=== PATIENT | male | born 1985 | race Hispanic/Latino ===

== ENCOUNTER → 2024-06-22 | Outpatient (CLI) | payer OTHER ==
--- NOTE | 2024-06-22 10:44 | HMCIMG ---
MR SHOULDER RIGHT WO HISTORY: Anterior subluxation and dislocation of the humerus COMPARISON: None TECHNIQUE: MRI of the right shoulder was performed utilizing multiple pulse sequences in axial, coronal and sagittal planes. Patient was not given contrast through intravenous route. FINDINGS: Subchondral cyst formation is seen of the superolateral humeral head. Hypertrophic degenerative changes are seen of the acromioclavicular joint. There is downward sloping of acromion in a medial to lateral direction encroaching upon the rotator cuff tendon and muscles. There is marked tendinosis with at least partial undersurface tear. Complete rotator cuff tendon. Is suspected. MR arthrogram may be helpful. The glenoid labrum is intact. Bicipital tendon is seen within its groove. Small joint effusion is seen. IMPRESSION: 1. There is marked tendinosis with at least partial undersurface tear. Complete rotator cuff tendon. Is suspected. MR arthrogram may be helpful. Small joint effusion.
== END | disposition home or self-care (01) ==
LOC: RAH 08:11
PROVIDERS: ATTEND Student in an Organized Health Care Education/Training Program
DX: S46.011D Strain of muscle(s) and tendon(s) of the rotator cuff of right shoulder, subsequent encounter (principal); S43.001A Unspecified subluxation of right shoulder joint, initial encounter; M19.011 Primary osteoarthritis, right shoulder; M25.411 Effusion, right shoulder; X58.XXXD Exposure to other specified factors, subsequent encounter
CPT/HCPCS: 73221

== ENCOUNTER 2024-08-01 05:53 | Day surgery (SDC) | payer OTHER ==
[2024-07-30 11:00] VITALS: BP 142/98; PULSE 77; RESP 18; TEMP 98.4
[2024-07-30 11:06] LABS: BASOPHILS # (AUTO) 0.04 K/uL (0.00-0.20); BASOPHILS % (AUTO) 0.4 % (0.0-5.0); EOSINOPHILS # (AUTO) 0.46 K/uL (0.00-0.70); EOSINOPHILS % (AUTO) 4.9 % (0.0-8.0); HEMATOCRIT 44.6 % (42-54); IMMATURE GRANULOCYTE ABSOLUTE 0.04 K/uL (0-1); LYMPHOCYTES # (AUTO) 3.2 K/uL (1.0-4.8); LYMPHOCYTES % (AUTO) 34.1 % (21.0-51.0); MEAN CORPUSCULAR HEMOGLOBIN 28.4 pg (27.0-33.0); MEAN CORPUSCULAR HGB CONC 33.9 g/dL (32.0-36.0); MONOCYTES # (AUTO) 0.7 K/uL (0.1-1.0); MONOCYTES % (AUTO) 7.5 % (3.0-13.0); NEUTROPHILS % (AUTO) 52.7 % (40.0-77.0); PLATELET COUNT (AUTO) 206 K/uL (130-400); RED BLOOD CELL COUNT(AUTO) 5.31 MIL/uL (4.50-6.20); RED CELL DISTRIBUTION WIDTH 12.9 % (11.0-15.5); WHITE BLOOD COUNT (AUTO) 9.4 K/uL (4.8-10.8)
[2024-07-30 11:36] LABS: INR 1.03 (0.85-1.15); PROTHROMBIN TIME 10.9 SEC (9.6-11.6)
[2024-07-30 11:37] LABS: CREATININE 0.8 mg/dL (0.5-1.3); POTASSIUM 3.9 mmol/L (3.5-5.1)
[2024-07-30 11:38] LABS: PARTIAL THROMBOPLASTIN TIME 28.2 SEC (26.3-35.5)
[~2024-08-01] VITALS: Ht 172.7 cm; Wt 162.1 kg
[2024-08-01] VITALS (16 sets, daily range): BP systolic 114–138; BP diastolic 41–70; PULSE 70–84; RESP 14–20; TEMP 97.3–98.4
[~2024-08-01 05:53] MED LIST: NAPR-1194 PO; SEMA1PEN3 SQ; TADA5TAB PO
[2024-08-01] MEDS: 0.9%NACL 1000ML 1,000 ML IV ONE (06:36)
[2024-08-01] MEDS: ceFAZolin SODIUM 1 GM VIAL ONE (06:37)
[2024-08-01] MEDS: ceFAZolin SODIUM 2 GM VIAL ONE (06:37)
[2024-08-01] MEDS ORDERED: dexaMETHasone SOD PHOSPHATE 10MG/ML 1ML VIAL ONE (07:35)
[2024-08-01] MEDS ORDERED: LIDOCAINE PF 100MG/5ML (2%) SYRINGE 5ML ONE (07:35)
[2024-08-01] MEDS ORDERED: ondanSETRON 4MG INJ ONE (07:35)
[2024-08-01] MEDS ORDERED: MIDAZOLAM HCL 1 MG/ML 2ML VIAL ONE (07:36)
[2024-08-01] MEDS ORDERED: SUCCINYLCHOLINE CHLORIDE 20 MG/ML 10 ML VIAL ONE (07:36)
[2024-08-01] MEDS ORDERED: proPOFol 10 MG/ML 20ML VIAL IV ONE (07:36)
[2024-08-01] MEDS ORDERED: FENTanyl CITRate PF 50 MCG/1 ML 2ML VIAL ONE (07:37)
[2024-08-01] MEDS ORDERED: rocuRONium bROMide 10MG/1ML 5ML VL ONE ×2 (07:37→11:48)
[2024-08-01] MEDS ORDERED: phenylEPHRINE HCL 10 MG/ML 1ML VIAL IV ONE ×2 (07:39→10:58)
[2024-08-01] MEDS ORDERED: GLYCOPYRROLATE 0.2 MG/ML 5 ML VIAL ONE (07:39)
[2024-08-01] MEDS ORDERED: NEOSTIGMINE METHYLSULFATE 1MG/ML IV ONE (07:39)
[2024-08-01] MEDS ORDERED: EPINEPHrine PF 1MG (1:1,000) 1 MG/ML AMP ONE (08:26)
[2024-08-01] MEDS ORDERED: ROPivacaine 0.5% 5MG/ML 30ML ONE (09:24)
[2024-08-01] MEDS ORDERED: HYDR-4060 PO (09:55)
[2024-08-01] MEDS ORDERED: CYCL5TAB3 PO (09:55)
[2024-08-01] MEDS ORDERED: SUGAMMADEX SODIUM 200 MG/2 ML VIAL IV ONE (12:10)
[2024-08-01] MEDS: EPINEPHrine PF 1MG (1:1,000) 1 MG/ML AMP MISC ONE (12:35)
--- NOTE | 2024-08-01 17:21 | OP ---
Operative Note: DATE OF PROCEDURE: 08/01/24 SURGEON: MARCIA SAUER MD ASTRONAUTICAL ENGINEER: Delores Adkins ANESTHESIA: General and interscalene block ANESTHESIOLOGIST/GUNSMITH APPRENTICE: Jose Samayoa PREOPERATIVE DIAGNOSIS: Right shoulder rotator cuff tear, subacromial impingement, acromioclavicular joint osteoarthritis POSTOPERATIVE DIAGNOSIS: Right shoulder rotator cuff tear, subacromial impingement, acromioclavicular joint osteoarthritis PROCEDURE: Right shoulder arthroscopic rotator cuff repair, subacromial decompression, distal clavicle excision ESTIMATED BLOOD LOSS: 20 cc FINDINGS: On inserting the arthroscope into the joint we noted some degenerative fraying of the labral tissue with some redundancy anteriorly. The long head of the biceps appeared healthy exiting the rotator interval. Just adjacent to this in the anterior corner was a tear of the supraspinatus off of its insertion that was unclear if it was full-thickness or not. The remainder of the supraspinatus appeared intact. Infraspinatus with some undersurface fraying but otherwise intact at its insertion. We debrided some of the frayed labral tissue anteriorly back to a stable leading edge. We tagged the location of our tear by placing a Prolene suture into the joint through the spinal needle placed through our tear. We then moved our instrumentation into the subacromial space where we were able to identify and repair the tear perform our subacromial decompression excising bone spurs and distal clavicle resection. INDICATIONS: 38-year-old male with a history of right shoulder pain after an injury at work with lifting a heavy box. They were failing conservative management and found on MRI to have small full-thickness tear of the anterior portion of the supraspinatus as well as some hypertrophy of the acromioclavicular joint. Clinically he is symptomatic for subacromial impingement. After discussion of the risk, benefits, and alternatives, the patient voluntarily agreed to undergo the aforementioned procedure. DESCRIPTION OF PROCEDURE: Patient was properly identified in the preoperative holding area. Surgical site marking was verified and surgery consent reviewed. The patient was then taken to the operating room and placed in supine position on the OR table. After induction of general anesthesia, preoperative antibiotics were given, all bony prominences were well-padded as the patient was transi tioned into beachchair position. The right upper extremity was then prepped and draped in usual sterile fashion. Surgical timeout was done verifying correct surgery, side, site, and location to be performed. We then began the procedure by using an 18-gauge spinal needle to inject the shoulder joint with normal saline to distend the joint capsule. A posterior lateral portal was established using 11 blade and we inserted our arthroscope through this portal. We established an anterior portal using needle l ocalization under direct visualization and placed a working cannula through this portal. We then performed a diagnostic arthroscopy with the aforementioned findings. We then evaluated the tear off of the insertion of the anterior portion of the supraspinatus. We debrided the free tendon edge back to healthy tissue. We also debrided the labral tissue that was redundant within the anterior and superior aspect of the joint. Passing an 18 gauge spinal needle through the tear, we used this to shuttle a Prolene suture into the joint and retrieved the and out of our anterior portal. We then repositioned the arthroscope into the subacromial space and the establishing an anterolateral working portal. We excise the subacromial bursa and rotated the shoulder until we were able to identify our or Prolene suture. There was a very small full-thickness tear in this region with delamination of the cuff surrounding it. We released the portion of the cuff that was delaminated adjacent to the full-thickness tear. Using the scorpion suture passer device, we then passed a single FiberTape through the rotator cuff 1 passed in the posterior portion of the tear and 1 passed in the anterior portion both in a horizontal mattress pattern. These were then secured to the humerus using one SwiveLock anchor. We then proceeded to insert the bur device and used this to further complete our subacromial de compression with excision of lateral acromial spurs a proximally 2 mm of the undersurface of the acromion. We also identified the acromioclavicular joint and resected a proximally 8 mm from the lateral aspect of the clavicle. We then removed as much of the arthroscopic fluid as possible and removed the arthroscopic instruments and camera. We expressed some the remaining fluid from the surrounding soft tissues. 3-0 nylon was then used to close the skin portals. Sterile soft dressing was applied. Patient was then placed into a shoulder immobilizer, awakened from anesthesia, and taken the recovery room in stable condition. MARCIA SAUER MD Aug 01, 2024 17:20
== END 2024-08-01 15:05 | disposition home or self-care (01) ==
LOC: DAH 05:53
PROVIDERS: ATTEND Student in an Organized Health Care Education/Training Program
DX: S46.011A Strain of muscle(s) and tendon(s) of the rotator cuff of right shoulder, initial encounter (principal); M19.011 Primary osteoarthritis, right shoulder; M24.111 Other articular cartilage disorders, right shoulder; M25.511 Pain in right shoulder; M75.21 Bicipital tendinitis, right shoulder; E66.01 Morbid (severe) obesity due to excess calories; K21.9 Gastro-esophageal reflux disease without esophagitis; E11.9 Type 2 diabetes mellitus without complications; Z79.01 Long term (current) use of anticoagulants; Z79.899 Other long term (current) drug therapy; Z68.43 Body mass index [BMI] 50.0-59.9, adult; X50.0XXA Overexertion from strenuous movement or load, initial encounter; Y93.89 Activity, other specified; Y92.69 Other specified industrial and construction area as the place of occurrence of the external cause; Y99.8 Other external cause status
CPT/HCPCS: 80048; 85025; 85610; 85730; 36415; 29827; 64415; 29826; 29824; 82948; A4663; J7120; A4565; A4649 ×2; J3010; J0690 ×2; J1100; J0330; J7030; J3490 ×3; J2003; J0171 ×2; J2250; J2704; J2405; J2710; J2795; J2371 ×2; A6223; A4930 ×2; C1713 ×2; A5120; A4215; A4223; A4222; A4221; A4450; A4600